=== PATIENT | male | born 1985 | race Caucasian/White ===

== ENCOUNTER → 2019-04-10 | Outpatient (REF) | payer BC ==
[2019-04-10 12:05] LABS: SEMEN APPEARANCE OPAQUE (OPAQUE); SEMEN VISCOSITY LIQUID (LIQUID); SEMEN pH 8.5 (7.0-8.0); WBC CONCENTRATION <=1 M/ml (<=1 M/ml)
== END ==
LOC: M LAB REF 10:06
PROVIDERS: ATTEND Family Medicine
DX: Z30.09 Encounter for other general counseling and advice on contraception (principal)